=== PATIENT | female | born 1975 | race Caucasian/White ===

== ENCOUNTER 2023-03-29 15:00 | Outpatient (RCR) | payer BC, SELFPAY | END 2023-05-09 08:37 | disposition home or self-care (01) | LOC: HO.PTCHIC 15:00 | PROVIDERS: PCP Nurse Practitioner Family; Visit Provider Family Medicine | DX: S83.411A Sprain of medial collateral ligament of right knee, initial encounter (principal) | CPT/HCPCS: 97110; 97140; 97161 ==